=== PATIENT | male | born 1995 | race Caucasian/White ===

== ENCOUNTER 2018-04-16 10:24 | Emergency (ER) | payer OTHER ==
--- NOTE | 2018-04-16 11:56 | ED ---
GI/ HPI - HPI Summary HPI Summary: This patient is a 22 year old M presenting to ED with a chief complaint of penile issues since a few weeks ago. The CC is described as "hard while flaccid " and "muscles aren't working properly". When erect, he believes there is more pressure on the inside than usual. Yesterday, he started having difficulty starting and stopping urine stream. He also reports having small amounts of discharge from his penis. HIV/STD negative per Yassine. The patient rates the pain 2/10 in severity. Pain is on the side of the penis. Symptoms aggravated by urinating. Symptoms alleviated by nothing. Patient reports some discoloration on the underside near the head ad slightly lower temperature of the head than usual. Patient denies any possible trauma, dysuria, and unprotected sex in the last couple months. - History of Current Complaint Chief Complaint: EDUrogenitalProblems Time Seen by Provider: 04/16/18 11:42 Stated Complaint: DIFF URINATING Hx Obtained From: Patient Onset/Duration: Started Weeks Ago, Still Present Timing: Lasting Weeks Severity: Mild Current Severity: Mild Pain Intensity: 2 Additional Locations for Males: Penis - side of the penis Associated Signs and Symptoms: Positive: Other: - The CC is described as "hard while flaccid" and "muscles aren't working properly". Patient reports some discoloration on the underside near the head ad slightly lower temperature of the head than usual and small amounts of discharge from his penis. Patient denies any possible trauma, dysuria, and unprotected sex in the last couple months. Aggravating Factor(s): Liquids - urinating Alleviating Factor(s): Nothing - Allergy/Home Medications Allergies/Adverse Reactions: Allergies Allergy/AdvReac Type Severity Reaction Status Date / Time No Known Allergies Allergy Verified 04/16/18 10:36 Home Medications: Home Medications Loratadine [Claritin 10 MG CAP] 10 mg PO DAILY 04/16/18 [History Confirmed 04/16] PMH/Surg Hx/FS Hx/Imm Hx Endocrine/Hematology History: Denies: Hx Diabetes Cardiovascular History: Denies: Hx Coronary Artery Disease, Hx Hypertension Respiratory History: Reports: Hx Seasonal Allergies Infectious Disease History: No Infectious Disease History: Denies: Traveled Outside the [place] in Last 30 Days - Family History Known Family History: Positive: Cardiac Disease, Diabetes Negative: Hypertension - Social History Alcohol Use: Rare Substance Use Type: Reports: None Smoking Status (MU): Never Smoked Tobacco Review of Systems Negative: Fever Positive: other - Penis is "hard while flaccid" and "muscles aren't working properly". When erect, he believes there is more pressure on the inside than usual. Small amounts of discharge from his penis. Pain is on the side of the penis. Patient reports some discoloration on the underside near the head ad slightly lower temperature of the head than usual. Patient denies any possible trauma and unprotected sex in the last couple months.. Negative: dysuria All Other Systems Reviewed And Are Negative: Yes Physical Exam - Summary Physical Exam Summary: Appearance: Well-appearing, Well-nourished, lying in bed comfortably Skin: Warm, dry, no obvious rash Eyes: sclera anicteric, no conjunctival pallor ENT: mucous membranes moist, pharynx appears normal Neck: Supple, nontender Respiratory: Clear to auscultation, no signs of respiratory distress Cardiovascular: Normal S1, S2. No murmurs. Normal distal pulses in tibial and radial bilaterally. Abdomen: Soft, nontender, normal active bowel sounds present Musculoskeletal: Normal, Strength/ROM Intact Neurological: A&Ox3, awake and alert, mentation is normal, speech is fluent and appropriate Psychiatric: affect is normal, does not appear anxious or depressed Rectal: Prostate feels normal. no large prostate or masses. Testicles have no inflammation or swelling, no discharge, no skin lesions, no hernias Triage Information Reviewed: Yes Vital Signs On Initial Exam: Initial Vitals Temp Pulse Resp BP Pulse Ox 98.8 F 80 12 144/89 100 04/16/18 10:32 04/16/18 10:32 04/16/18 10:32 04/16/18 10:32 04/16/18 10:32 Vital Signs Reviewed: Yes Diagnostics - Vital Signs Vital Signs Temp Pulse Resp BP Pulse Ox 04/16/18 10:32 98.8 F 80 12 144/89 100 - Laboratory Lab Statement: Any lab studies that have been ordered have been reviewed, and results considered in the medical decision making process. GIGU Course/Dx - Diagnoses Differential Diagnoses - Male: Epididymitis, STD Provider Diagnoses: Genitourinary complaints Discharge - Sign-Out/Discharge Documenting (check all that apply): Patient Departure - Discharge Plan Condition: Good Disposition: HOME Referrals: No Primary Care Phys,NOPCP [Primary Care Provider] - Brad Link MD [Medical Doctor] -
[2018-04-16 12:16] VITALS: BP 137/77
== END 2018-04-16 12:15 | disposition home or self-care (01) ==
LOC: ED 10:24
DX: R39.9 Unspecified symptoms and signs involving the genitourinary system (principal)
CPT/HCPCS: 99282